=== PATIENT | female | born 1965 | race Caucasian/White ===

== ENCOUNTER 2021-10-23 22:14 | Emergency (ER) | payer MEDICAID, SELFPAY ==
[2021-10-23 22:18] VITALS: BP 117/66; PULSE 96; RESP 18; TEMP 35.9; O2SAT 100; BMI 31.7
--- NOTE | 2021-10-23 22:35 | EKG12_ITS ---
Test Reason : DYSRHYTHMIA Blood Pressure : / mmHG Vent. Rate : 083 BPM Atrial Rate : 083 BPM P-R Int : 138 ms QRS Dur : 098 ms QT Int : 384 ms P-R-T Axes : 073 076 068 degrees QTc Int : 451 ms Normal sinus rhythm Low voltage QRS Borderline ECG Confirmed by NICOLA BO, GEORGE ([id number]), editorial specialist TOBI FRANCISCO ([id number]) on 10/24/2021 11:24:06 AM Referred By: ALVAREZ Confirmed By:GEORGE PETERSEN MD
--- NOTE | 2021-10-23 23:14 | RAD_ITS ---
EXAM: XR CHEST, 2 VIEWS CLINICAL INDICATION: chest pain TECHNIQUE: Frontal and lateral views of the chest. This report was created using [employer] report generation technology. COMPARISON: None. FINDINGS: LUNGS AND PLEURAL SPACES: Low lung volumes limit the exam. No consolidations. No pneumothorax. No effusion. HEART: Unremarkable. Cardiac silhouette not enlarged. MEDIASTINUM: Central airways and mediastinal contour are unremarkable. BONES/JOINTS: Unremarkable. SOFT TISSUES: Unremarkable. RAD/Chest PA and Lateral IMPRESSION: 1. Low lung volumes limit the exam. No consolidations. 2. No acute cardiopulmonary abnormality. Electronically Signed: Pavan Henriquez MD at 23:32 EDT ,
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
[2021-10-24 00:04] VITALS: BP 121/78; PULSE 71; RESP 16; O2SAT 98
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
== END 2021-10-24 00:13 ==
PROVIDERS: Emergency Provider Emergency Medicine; Visit Provider Emergency Medicine
DX: T40.2X1A Poisoning by other opioids, accidental (unintentional), initial encounter (principal); S20.20XA Contusion of thorax, unspecified, initial encounter; Y84.8 Other medical procedures as the cause of abnormal reaction of the patient, or of later complication, without mention of misadventure at the time of the procedure; F17.210 Nicotine dependence, cigarettes, uncomplicated
CPT/HCPCS: 71046; 93005; 99284

== ENCOUNTER 2023-10-24 19:46 | Emergency (ER) | payer MEDICAID, SELFPAY ==
[2023-10-24 19:47] VITALS: BP 142/79; PULSE 100; RESP 22; TEMP 36.4; O2SAT 98; BMI 32.3
== END 2023-10-24 20:24 | disposition left against medical advice (07) ==
LOC: ED 20:24
PROVIDERS: PCP Family Medicine
DX: H57.11 Ocular pain, right eye (principal); Z53.21 Procedure and treatment not carried out due to patient leaving prior to being seen by health care provider